=== PATIENT | male | born 1950 | race Two or more races ===

== ENCOUNTER 2020-02-21 08:53 | Outpatient (CLI) | payer OTHER | END 2020-02-21 23:59 | disposition home or self-care (01) | LOC: LAB 08:53 | PROVIDERS: ATTEND Specialist | DX: Z01.812 Encounter for preprocedural laboratory examination (principal); Z20.828 Contact with and (suspected) exposure to other viral communicable diseases | CPT/HCPCS: 87426; C9803 ×2; U0003 ==

== ENCOUNTER 2020-02-26 06:22 | Day surgery (SDC) | payer OTHER ==
[2020-02-26] MEDS ORDERED: LIDOCAINE 0.5% HCL 50 ML VIAL ONE (08:05)
[2020-02-26] MEDS ORDERED: FENTANYL PF 100MCG/2ML AMPUL ONE (08:06)
--- NOTE | 2020-02-26 09:45 | NUR ---
RECEIVED PT FROM OPERATING ROOM, SURGERY OF LEFT CARPAL TUNNEL DONE. PT IN STABLE CONDITION. NOT IN ANY ACUTE DISTRESS. UPON BEDSIDE REPORT FROM OR NURSE PT EKG READS ATRIAL FIBRILLATION. SPOKE TO DR MORRIS, AND STATED PT OK TO GO HOME, AND TO INFORM SON REGARDING EKG RESULTS, AND TO BRING UP TO PCP FOR FOLLOW UP AND FURTHER EVALUATION. NO SIGNS OF ANY DISTRESS R/T EKG READING OF A-FIB. 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
--- NOTE | 2020-02-26 13:15 | NUR ---
EXIT CARE AND DISCHARGE INSTRUCTIONS PROVIDED TO PT. ACCOMPANIED TO HOSPITAL LOBBY AND MET WITH SON. PT IS NEPALI SPEAKING. SON INFORMED OF DR MORRIS'S INSTRUCTIONS WELL THE REST OF DISCHARGE INSTRUCTIONS PERTAINING TO CARPAL TUNNEL SURGERY. PT SON VERBALIZED UNDERSTANDING. PT LEFT THE FACILITY IN STABLE CONDITION VIA PRIVATE CAR.
== END 2020-02-26 18:00 | disposition home or self-care (01) ==
LOC: DS 06:22 → UNDOADMIN 06:23 → MED 06:23 → UNDODISIN 13:00 → DS 18:00
PROVIDERS: ATTEND Specialist
DX: G56.02 Carpal tunnel syndrome, left upper limb (principal)
CPT/HCPCS: 64721; A6402; J0690; J1100; J1885; J2405; J2704; J3010; J3490 ×2; G0378